=== PATIENT | male | born 1950 | race Hispanic/Latino ===

== ENCOUNTER → 2024-06-08 16:41 | Outpatient (REF) | payer MEDICARE, OTHER, SELFPAY ==
[2024-06-08 11:11] LABS: % Basophils 0.5 % (0-2); % Eosinophils 4.2 % (0-6); % Immature Granulocytes 1.8 % (0-0.5); % Lymphocytes 30.5 % (20.5-51.1); % Monocytes 8.5 % (1.7-9.3); % Neutrophils 54.5 % (42.2-75.2); Absolute Eosinophils 0.2 10^3/uL (0-0.7); Absolute Immature Granulocytes 0.1 10^3/uL (0-0.05); Absolute Lymphocytes 1.7 10^3/uL (1.2-3.4); Absolute Monocytes 0.5 10^3/uL (0.1-0.6); Absolute Neutrophils 3.1 10^3/uL (1.4-6.5); Hematocrit 43.7 % (39.0-52.0); Hemoglobin 14.3 g/dL (13.0-18.0); Mean Corp Hgb Conc. 32.7 g/dL (33.0-37.0); Mean Corpuscular Hgb 30.2 pg (27.0-31.0); Mean Corpuscular Volume 92.4 fL (80.0-94.0); Mean Platelet Volume 10.3 fL (7.4-10.4); Platelet Count 208 10^3/uL (130-400); Red Blood Cell Count 4.73 10^6/uL (4.70-6.10); Red Cell Dist. Width 13.1 % (11.5-14.5); White Blood Cell Count 5.7 10^3/uL (4.8-10.8)
== END ==
LOC: OIDL 16:41
PROVIDERS: ATTENDING PHYSICIAN Internal Medicine Hematology & Oncology
DX: D72.89 Other specified disorders of white blood cells (principal)
CPT/HCPCS: 85025

== ENCOUNTER → 2025-07-26 08:34 | Outpatient (REF) | payer MEDICARE, OTHER, SELFPAY ==
[2025-07-26] VITALS (7 sets, daily range): BP systolic 51–145; BP diastolic 64–71
[2025-07-26 09:14] LABS: Hematocrit 43.3 % (39.0-52.0); Hemoglobin 14.0 g/dL (13.0-18.0); Mean Corp Hgb Conc. 32.3 g/dL (33.0-37.0); Mean Corpuscular Volume 92.5 fL (80.0-94.0); Nucleated Red Blood Cells % 0 % (-); Platelet Count 191 10^3/uL (130-400); Red Cell Dist. Width 13.4 % (11.5-14.5)
[2025-07-26 09:20] LABS: INR 1.01; PT 13.6 Sec (11.4-14.6)
[2025-07-26] MEDS: ATIVAN 0.5 MG PO (09:31)
== END ==
LOC: RADI 08:34
PROVIDERS: ATTENDING PHYSICIAN Internal Medicine Hematology & Oncology; FAMILY PHYSICIAN Family Medicine; REFERRING PHYSICIAN Physician Assistant
DX: D72.89 Other specified disorders of white blood cells (principal); D68.8 Other specified coagulation defects
CPT/HCPCS: 36415; 38222; 77012; 85025; 85610; 88305; 88311; 88312; 88313

== ENCOUNTER 2025-08-29 20:00 | Emergency (ER) | payer MEDICARE, OTHER, SELFPAY ==
[2025-08-29 20:02] VITALS: BP 145/74
[2025-08-29 20:29] LABS: Hematocrit 42.8 % (39.0-52.0); Hemoglobin 14.1 g/dL (13.0-18.0); Mean Corp Hgb Conc. 32.9 g/dL (33.0-37.0); Mean Corpuscular Volume 90.3 fL (80.0-94.0); Nucleated Red Blood Cells % 0 % (-); Platelet Count 195 10^3/uL (130-400); Red Cell Dist. Width 13.1 % (11.5-14.5)
[2025-08-29 20:51] LABS: ALT (SGPT) 23 U/L (0-50); AST (SGOT) 21 U/L (17-59); Albumin 4.5 g/dl (3.5-5.0); Alkaline Phosphatase 49 U/L (38-126); Blood Urea Nitrogen 19 mg/dl (9-20); Calcium 9.8 mg/dl (8.4-10.2); Carbon Dioxide 34 mmol/L (22-30); Chloride 97 mmol/L (98-107); Glucose 255 mg/dl (70-99); Potassium 4.3 mmol/L (3.5-5.1); Sodium 135 mmol/L (135-145); Total Protein 7.5 g/dl (6.3-8.2); eGFR > 60.00
[2025-08-29 21:16] VITALS: BMI 27.8
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
[2025-08-30 10:54] LABS: Glycohemoglobin (HgbA1c) 8.6 % (4.0-5.9)
== END 2025-08-29 23:41 | disposition home or self-care (01) ==
LOC: EMR 20:00
PROVIDERS: Emergency Medicine; EMERGENCY PHYSICIAN Emergency Medicine; FAMILY PHYSICIAN Family Medicine
DX: R26.89 Other abnormalities of gait and mobility (principal); F41.9 Anxiety disorder, unspecified; Z87.820 Personal history of traumatic brain injury
CPT/HCPCS: 99284; 70450; 80053; 83036; 85025